=== PATIENT | female | born 1985 | race American Indian/Alaskan Native ===

== ENCOUNTER 2019-01-26 01:48 | Emergency (ER) | payer MEDICAID, OTHER ==
[2019-01-26] MEDS ORDERED: NACL 0.9% 1000 ML 1,000 ML IV ONE (02:18)
[2019-01-26 02:41] LABS: Basophils % (Auto) 0.9 % (0.0-1.8); Eosinophils # (Auto) 0.1 K/mm3 (0.0-0.4); Eosinophils % (Auto) 1.9 % (0.0-4.3); Hematocrit 36.7 % (30.3-42.9); Hemoglobin 12.5 gm/dl (10.1-14.3); Lymphocytes % (Auto) 44.6 % (13.4-35.0); Mean Corpuscular HGB Conc 34 % (30-34); Mean Corpuscular Volume 93 fl (79-97); Monocytes # (Auto) 0.4 K/mm3 (0.0-0.8); Monocytes % (Auto) 9.1 % (0.0-7.3); Platelet Count 235 K/mm3 (140-440); Red Blood Count 3.94 M/mm3 (3.65-5.03); Red Cell Distribution Width 12.9 % (13.2-15.2)
[2019-01-26 03:09] LABS: Bacteria,Urine 3+ /HPF (Negative); Bilirubin,Urine NEG (Negative); Blood,Urine NEG (Negative); Color,Urine Yellow (Yellow); Mucus,Urine 1+ /HPF; Protein,Urine <15 mg/dL mg/dL (Negative); Urobilinogen,Urine < 2.0 mg/dL (<2.0)
[2019-01-26 03:13] LABS: Alanine Aminotransferase 19 units/L (7-56); Albumin 4.2 g/dL (3.9-5); BUN/Creatinine Ratio 25; Blood Urea Nitrogen 15 mg/dL (7-17); Calcium 9.1 mg/dL (8.4-10.2); Hemolysis Index 4
[2019-01-26 03:14] LABS: HCG Qualitative,Urine Negative (Negative)
[2019-01-26] MEDS ORDERED: KEFLEX PO ONE (07:41)
[2019-01-26] MEDS ORDERED: IBUPROFEN PO ONE (07:41)
[2019-01-26] MEDS ORDERED: ZOFRAN ODT PO ONE (07:41)
--- NOTE | 2019-01-26 07:42 | Emergency Department Report ---
ED Female HPI - General Chief complaint: Abdominal Pain Stated complaint: ABD PAIN/PAIN IN URINATING/THOMAS Time Seen by Provider: 01/26/19 07:37 Source: patient Mode of arrival: Ambulatory Limitations: No Limitations - History of Present Illness Initial comments: This is a 33-year-old female here report that she has a headache that started 2 days ago and is 2/stent to the front of her head and feels sharp. She has associated have a urinary burning in 4 days and denies any hematuria. Last measured. Was to 2018. Denies any nausea vomiting and or fever or chills. Denies any back pain. She reports pelvic pain at 3/10 and cramping. She said s he took some Advil. No alleviating or exacerbating factors. MD Complaint: dysuria, pelvic pain Onset/Timin -: days(s) Location: suprapubic Radiation: non-radiating Severity: mild Severity scale (0 -10): 3 Quality: cramping Consistency: intermittent Improves with: none Worsens with: none Are you Now?: No Last Menstrual Period: 02/10/19 EDC: 11/17/19 Associated Symptoms: abdominal pain, headaches, dysuria. denies: vaginal discharge, vaginal bleeding, nausea/vomiting, fever/chills, loss of appetite, hematuria, rash, shortness of breath, syncope, weakness - Related Data Sexually active: No Previous Rx's Medication Instructions Recorded Last Taken Type traMADol [Ultram 50 MG tab] 50 mg PO Q6HR PRN #16 tablet 12/02/15 Unknown Rx Naproxen [Naprosyn] 500 mg PO BID PRN #12 tablet 01/26/19 Unknown Rx Phenazopyridine [Pyridium] 100 mg PO TID PRN 3 Days #9 tab 01/26/19 Unknown Rx cephALEXin [Keflex] 500 mg PO Q12H 10 Days #20 cap 01/26/19 Unknown Rx Allergies Allergy/AdvReac Type Severity Reaction Status Date / Time shellfish derived Allergy Itching Verified 12/02/15 03:35 ED Review of Systems ROS: Stated complaint: ABD PAIN/PAIN IN URINATING/THOMAS Other details as noted in HPI Constitutional: denies: chills, fever Eyes: denies: eye discharge, vision change ENT: denies: as per HPI, throat pain Respiratory: denies: cough, shortness of breath Cardiovascular: denies: chest pain, palpitations Gastrointestinal: abdominal pain. denies: diarrhea, constipation, hematemesis, hematochezia Genitourinary: dysuria. denies: urgency, frequency, hematuria, discharge, abnormal menses, dyspareunia Musculoskeletal: denies: back pain, joint swelling, arthralgia Skin: denies: rash Neurological: headache. denies: numbness, paresthesias, confusion, abnormal gait, vertigo ED Past Medical Hx - Past Medical History Previous Medical History?: No - Surgical History Past Surgical History?: No - Family History Family history: no significant - Social History Smoking Status: Never Smoker Substance Use Type: None - Medications Home Medications: Home Medications Medication Instructions Recorded Confirmed Last Taken Type traMADol [Ultram 50 MG tab] 50 mg PO Q6HR PRN #16 tablet 12/02/15 Unknown Rx Naproxen [Naprosyn] 500 mg PO BID PRN #12 tablet 01/26/19 Unknown Rx Phenazopyridine [Pyridium] 100 mg PO TID PRN 3 Days #9 tab 01/26/19 Unknown Rx cephALEXin [Keflex] 500 mg PO Q12H 10 Days #20 cap 01/26/19 Unknown Rx ED Physical Exam - General Limitations: No Limitations General appearance: alert, in no apparent distress - Head Head exam: Present: atraumatic, normocephalic, normal inspection, other (normal exam) - Eye Eye exam: Present: normal appearance, PERRL, EOMI Pupils: Present: normal accommodation - ENT ENT exam: Present: normal exam, normal orophraynx, mucous membranes moist, TM's normal bilaterally, normal external ear exam - Neck Neck exam: Present: normal inspection, full ROM, other (no C-spine tenderness). Absent: tenderness, lymphadenopathy - Respiratory Respiratory exam: Present: normal lung sounds bilaterally. Absent: respiratory distress, chest wall tenderness - Cardiovascular Cardiovascular Exam: Present: regular rate, normal rhythm, normal heart sounds - GI/Abdominal GI/Abdominal exam: Present: soft, normal bowel sounds. Absent: distended, tenderness, guarding, rebound, rigid, organomegaly, mass - Extremities Exam Extremities exam: Present: normal inspection, full ROM, normal capillary refill, other (No cce. + 2 pulses in all extremities, no neurovascular compromise). Absent: tenderness - Back Exam Back exam: Present: normal inspection, full ROM, other (ambulates without any difficulties). Absent: tenderness, CVA tenderness (R), CVA tenderness (L), rash noted - Neurological Exam Neurological exam: Present: alert, oriented X3, normal gait, reflexes normal, other (no focal deficits). Absent: motor sensory deficit - Psychiatric Psychiatric exam: Present: normal affect, normal mood - Skin Skin exam: Present: warm, dry, intact, normal color. Absent: rash ED Course Vital Signs 01/26/19 01:55 Temperature 98.3 F Pulse Rate 87 Respiratory 18 Rate Blood Pressure 118/70 O2 Sat by Pulse 99 Oximetry - Reevaluation(s) Reevaluation #1: 01/26/19 07:47 Patient stable throughout ED course. She was given Zofran 4 mg ODT, Keflex 500 mg by mouth and Motrin 800 mg by mouth. She is stable in no acute distress. ED Medical Decision Making - Lab Data Result diagrams: 01/26/19 02:32 01/26/19 02:32 Lab Results 01/26/19 01/26/19 01/26/19 Range/Units 02:32 02:32 02:45 WBC 4.6 (4.5-11.0) K/mm3 RBC 3.94 (3.65-5.03) M/mm3 Hgb 12.5 (10.1-14.3) gm/dl Hct 36.7 (30.3-42.9) % MCV 93 (79-97) fl MCH 32 (28-32) pg MCHC 34 (30-34) % RDW 12.9 L (13.2-15.2) % Plt Count 235 (140-440) K/mm3 Lymph % (Auto) 44.6 H (13.4-35.0) % Coffey % (Auto) 9.1 H (0.0-7.3) % Eos % (Auto) 1.9 (0.0-4.3) % Baso % (Auto) 0.9 (0.0-1.8) % Lymph # 2.0 (1.2-5.4) K/mm3 Coffey # 0.4 (0.0-0.8) K/mm3 Eos # 0.1 (0.0-0.4) K/mm3 Baso # 0.0 (0.0-0.1) K/mm3 Seg Neutrophils % 43.5 (40.0-70.0) % Seg Neutrophils # 2.0 (1.8-7.7) K/mm3 Sodium 140 (137-145) mmol/L Potassium 3.7 (3.6-5.0) mmol/L Chloride 103.7 (98-107) mmol/L Carbon Dioxide 25 (22-30) mmol/L Anion Gap 15 mmol/L BUN 15 (7-17) mg/dL Creatinine 0.6 L (0.7-1.2) mg/dL Estimated GFR > 60 ml/min BUN/Creatinine Ratio 25 % Glucose 88 (65-100) mg/dL Calcium 9.1 (8.4-10.2) mg/dL Total Bilirubin 0.40 (0.1-1.2) mg/dL AST 13 (5-40) units/L ALT 19 (7-56) units/L Alkaline Phosphatase 66 (35-129) units/L Total Protein 7.8 (6.3-8.2) g/dL Albumin 4.2 (3.9-5) g/dL Albumin/Globulin Ratio 1.2 % Urine Color Yellow (Yellow) Urine Turbidity Slightly-cloudy (Clear) Urine pH 5.0 (5.0-7.0) Ur Specific Roc[place]le 1.023 (1.003-1.030) Urine Protein <15 mg/dl (Negative) mg/dL Urine Glucose (UA) Neg (Negative) mg/dL Urine Ketones Neg (Negative) mg/dL Urine Blood Neg (Negative) Urine Nitrite Pos (Negative) Urine Bilirubin Neg (Negative) Urine Urobilinogen < 2.0 (<2.0) mg/dL Ur Leukocyte Esterase Sm (Negative) Urine WBC (Auto) 11.0 H (0.0-6.0) /HPF Urine RBC (Auto) 4.0 (0.0-6.0) /HPF U Epithel Cells (Auto) 9.0 (0-13.0) /HPF Urine Bacteria (Auto) 3+ (Negative) /HPF Urine Mucus 1+ /HPF Urine HCG, Qual Negative (Negative) Urine culture sent - Medical Decision Making This is a 33-year-old female here reported that she has been having headache and urinary burning. She was given medication in emergency room for pain and to prevent nausea. Patient has urinary tract infection per urinalysis and urine culture was sent. Her CBC and chemistry within normal limits and test is negative. Patient instructed in diagnosis, lab results and treatment plan and follow-up in 2-3 days with her primary care physician and she does not have a primary care physician to follow-up at [facility]. Given prescription for Keflex, Zofran and naproxen Critical care attestation.: If time is entered above; I have spent that time in minutes in the direct care of this critically ill patient, excluding procedure time. ED Disposition Clinical Impression: Pelvic cramping, Acute cystitis without hematuria, Dysuria Disposition: TO HOME OR SELFCARE Is pt being admited?: No Does the pt Need Aspirin: No Condition: Stable Instructions: Abdominal Pain (ED), Dysuria (ED), Urinary Tract Infection in Women (ED) Additional Instructions: Please follow up with a primary care doctor in 2-3 days. Take Pain medication as prescribed Increase her fluid intake If he is symptoms worsen, return to the emergency room Referrals: ZENA WEATHERS MD [Primary Care Provider] - 2-3 Days [facility] [Outside] - 2-3 Days JACKSON GREY MD [Staff Physician] - 3-5 Days Forms: Work/School Release Form(ED)
[2019-01-26 08:10] VITALS: BP 115/82
== END 2019-01-26 08:10 | disposition home or self-care (01) ==
LOC: ED 01:48
DX: N30.00 Acute cystitis without hematuria (principal); R10.2 Pelvic and perineal pain; Z91.013 Allergy to seafood
CPT/HCPCS: 36415; 80053; 81001; 81025; 85025; 87086; 99283; Q0162